=== PATIENT | male | born 1975 | race Two or more races ===

== ENCOUNTER → 2019-06-28 | Outpatient (CLI) | payer SELFPAY ==
[~2019-06-28] MED LIST: BARIUM SULFATE 450ML ORAL SUSP ONE; IOHEXOL-300 100 ML BOTTLE ONE
== END | disposition home or self-care (01) ==
LOC: RAD 16:45
DX: N20.0 Calculus of kidney (principal); K76.89 Other specified diseases of liver
CPT/HCPCS: 74160; Q9967; Z7610

== ENCOUNTER → 2020-09-10 | Outpatient (CLI) | payer OTHER ==
[~2020-09-10] VITALS: Ht 175.3 cm; Wt 80.7 kg
[~2020-09-10] MED LIST changes: -BARIUM SULFATE 450ML ORAL SUSP ONE; -IOHEXOL-300 100 ML BOTTLE ONE; +IOHEXOL-350 100 ML BOTTLE ONE; +METOPROLOL TARTRATE 5MG/5ML VIAL IV NR; +METOPROLOL TARTRATE 5MG/5ML VIAL IV ONE; +METOPROLOL TARTRATE 5MG/5ML VIAL IV SCH; +NITROGLYCERIN SPRAY/4.9GM CAN TL ONE
== END | disposition home or self-care (01) ==
LOC: RAD 09:47
PROVIDERS: ATTEND Radiology Diagnostic Radiology
DX: Z13.6 Encounter for screening for cardiovascular disorders (principal)
CPT/HCPCS: 75571; J3490; Q9967; Z7610